=== PATIENT | female | born 1965 | race Caucasian/White ===

== ENCOUNTER 2021-02-11 18:19 | Inpatient (IN) ==
[2021-02-11] MEDS ORDERED: cefTRIAXone 1,000 MG in Water for inj. (sterile) 10 ML IVP ONE (18:36)
[2021-02-11] MEDS ORDERED: methylPREDNISolone 125 MG/2 ML VIAL IVP ONE (18:36)
[2021-02-11] MEDS ORDERED: Azithromycin 500 MG in 0.9 % Sodium Chloride 250 ML IVPB ONE (18:36)
[2021-02-11] MEDS ORDERED: Ipratropium/Albuterol Neb 3 ML IH ONE (18:36)
[2021-02-11] MEDS: 0.9 % Sodium Chloride 1,000 ML IVC SCH (18:56)
[2021-02-11 19:06] LABS: Basophils % 0.1 %; Hematocrit 37.5 % (35.3-44.9); Hemoglobin 12.7 g/dL (11.5-15.4); Immature Granulocytes % 0.7 % (0-4); Lymphocytes # 0.5 K/mcL (0.6-4.6); Lymphocytes % 4.4 %; Mean Corpuscular HGB Conc 33.9 g/dL (31.6-35.5); Mean Corpuscular Hemoglobin 28.9 pg (28.0-33.3); Mean Corpuscular Volume 85.2 fL (83.0-100.0); Mean Platelet Volume 10.4 fL (9.4-12.4); Monocytes # 0.5 K/mcL (0.0-1.3); Monocytes % 4.7 %; Platelet Count 210 K/mcL (140-400); Red Cell Distribution Width 13.9 % (11.5-14.5); Segmented Neutrophils % 90.1 %; White Blood Count 10.9 K/mcL (4.3-11.1)
[2021-02-11 19:21] LABS: Neutrophils # 9.8 K/mcL (1.6-8.9)
[2021-02-11 19:28] LABS: Alanine Aminotransferase 159 Units/L (7-52); Albumin 3.6 g/dL (3.5-5.7); Albumin/Globulin Ratio 0.9 (1.1-2.2); Aspartate Amino Transferase 139 Units/L (13-39); BUN/Creatinine Ratio 26 (6-26); Bilirubin,Direct 0.2 mg/dL (0.0-0.2); Bilirubin,Indirect 0.4 mg/dL (0.0-1.0); Bilirubin,Total 0.6 mg/dL (0.3-1.0); Blood Urea Nitrogen 19 mg/dL (6-20); Calcium 8.8 mg/dL (8.6-10.3); Carbon Dioxide 20 mEq/L (23-29); Chloride 100 mEq/L (98-107); Globulin 3.9 g/dL (2.4-3.5); Glucose 113 mg/dL (70-105); Magnesium 1.7 mg/dL (1.6-2.6); Osmolality,Calculated 285 (280-300); Phosphorous 1.5 mg/dL (2.7-4.5); Potassium 3.4 mEq/L (3.5-5.1); Sodium 136 mEq/L (136-145); Total Protein 7.5 g/dL (6.4-8.9); Troponin I < 0.03 ng/mL (< 0.04); eGFR For African Americans > 60 (> 60); eGFR For Non-African Americans > 60 (> 60)
[2021-02-11 19:38] LABS: Reactive Lymphocytes Present (Not Present)
[2021-02-11 19:56] LABS: Adenovirus Not Detected (Not Detect); Coronavirus 229E Not Detected (Not Detect); Coronavirus HKU1 Not Detected (Not Detect); Coronavirus NL63 Not Detected (Not Detect); Coronavirus OC43 Not Detected (Not Detect)
[2021-02-11 19:58] LABS: Bordetella Pertussis Not Detected (Not Detect); Chlamydophila pneumoniae Not Detected (Not Detect); Human Metapneumovirus Not Detected (Not Detect); Human Rhinovirus/Enterovirus Not Detected (Not Detect); Influenza A Subtype 2009 H1 Not Detected (Not Detect); Influenza B Not Detected (Not Detect); Mycoplasma pneumoniae Not Detected (Not Detect); Parainfluenza Virus 1 Not Detected (Not Detect); Parainfluenza Virus 2 Not Detected (Not Detect); Parainfluenza Virus 3 Not Detected (Not Detect); Parainfluenza Virus 4 Not Detected (Not Detect); Respiratory Syncytial Virus Not Detected (Not Detect); SARS-CoV-2 DETECTED (Not Detect)
[2021-02-11 20:43] LABS: Alkaline Phosphatase 128 Units/L (34-104)
[2021-02-11 20:47] LABS: Bilirubin,Urine Negative (Negative); Blood,Urine Trace (Negative); Clarity,Urine Clear (Clear); Color,Urine Yellow (Yellow); Glucose,Urine (UA) Normal (Normal); Ketones,Urine 10 mg/dL (Negative); Leukocyte Esterase,Urine Negative (Negative); Mucus,Urine Few per lpf (None-Few); Nitrite,Urine Negative (Negative); PH,Urine 6.5 pH Units (5.0-8.0); Protein,Urine >=300 mg/dL (Neg-Trace); RBC,Urine 0-3 per hpf (0-3); Specific Gravity,Urine 1.027 (1.010-1.025); Squamous Epithelial Cell,Urine Few per hpf (None-Few); Urobilinogen,Urine Normal (Normal); WBC,Urine 0-3 per hpf (0-3)
[2021-02-11 21:18] LABS: Hepatitis B Surface Antigen Nonreactive (Nonreactive)
[2021-02-11 21:46] LABS: Hepatitis B Core IgM Nonreactive (Nonreactive)
[2021-02-11 21:47] LABS: Hepatitis C Virus Antibody Nonreactive (Nonreactive)
[2021-02-11 21:48] LABS: Hepatitis A Antibody IgM Nonreactive (Nonreactive)
[2021-02-11] MEDS ORDERED: Ondansetron 4 MG/2 ML VIAL IVP PRN (21:48)
[2021-02-11] MEDS ORDERED: Naloxone 0.4 MG/ML INJ IVP PRN (21:48)
[2021-02-11] MEDS ORDERED: Ipratropium/Albuterol Neb 3 ML IH PRN (21:51)
[2021-02-11 22:44] LABS: Estimated Average Glucose 120 mg/dl; Hemoglobin A1C 5.8 %
[2021-02-12] MEDS: 0.9 % Sodium Chloride 1,000 ML IVC SCH (03:34)
[2021-02-12 04:36] LABS: Basophils % 0.2 %; Hematocrit 34.5 % (35.3-44.9); Hemoglobin 11.4 g/dL (11.5-15.4); Immature Granulocytes % 0.8 % (0-4); Lymphocytes # 0.4 K/mcL (0.6-4.6); Lymphocytes % 6.4 %; Mean Corpuscular Hemoglobin 28.4 pg (28.0-33.3); Monocytes # 0.2 K/mcL (0.0-1.3); Monocytes % 3.9 %; Neutrophils # 5.5 K/mcL (1.6-8.9); Platelet Count 187 K/mcL (140-400); Red Blood Count 4.01 M/mcL (3.82-4.97); Segmented Neutrophils % 88.7 %; White Blood Count 6.2 K/mcL (4.3-11.1)
[2021-02-12 04:42] LABS: INR 1.2; Prothrombin Time 14.2 Seconds (9.4-12.1)
[2021-02-12 04:54] LABS: BUN/Creatinine Ratio 23 (6-26); Blood Urea Nitrogen 12 mg/dL (6-20); C-Reactive Protein 227 mg/L (Less than 10); Calcium 8.5 mg/dL (8.6-10.3); Carbon Dioxide 22 mEq/L (23-29); Chloride 106 mEq/L (98-107); Chol/HDL Ratio 4.5 (0-4.9); Cholesterol 161 mg/dL (< 200); Glucose 145 mg/dL (70-105); HDL Cholesterol 36 mg/dL (40-59); LDL Cholesterol,Calculated 98 mg/dL (< 100); Lactate Dehydrogenase 333 Units/L (140-271); Osmolality,Calculated 292 (280-300); Potassium 4.2 mEq/L (3.5-5.1); Sodium 140 mEq/L (136-145); Triglycerides 137 mg/dL (< 150); eGFR For African Americans > 60 (> 60); eGFR For Non-African Americans > 60 (> 60)
[2021-02-12 05:32] LABS: Platelet Estimate Normal (Normal)
[2021-02-12] MEDS ORDERED: *HR* Enoxaparin 30 MG/0.3 ML SYRINGE SQ SCH (09:00)
[2021-02-12] MEDS ORDERED: Potassium Phosphate 44 MEQ in 0.9 % Sodium Chloride 250 ML IVPB ONE (11:48)
[2021-02-12 12:44] LABS: Protein/Creatinine Ratio,Urine 3.04 mg/mg (0.00-0.20)
[2021-02-12 14:10] LABS: Alanine Aminotransferase 121 Units/L (7-52); Albumin 3.4 g/dL (3.5-5.7); Albumin/Globulin Ratio 1.1 (1.1-2.2); Alkaline Phosphatase 107 Units/L (34-104); Aspartate Amino Transferase 85 Units/L (13-39); Bilirubin,Direct 0.1 mg/dL (0.0-0.2); Bilirubin,Indirect 0.3 mg/dL (0.0-1.0); Bilirubin,Total 0.4 mg/dL (0.3-1.0); Total Protein 6.4 g/dL (6.4-8.9)
[2021-02-12] MEDS ORDERED: Azithromycin 500 MG in 0.9 % Sodium Chloride 250 ML IVPB SCH (19:00)
[2021-02-12] MEDS ORDERED: cefTRIAXone 1,000 MG in 0.9 % Sodium Chloride Mini Bag 100 ML IVPB SCH (19:00)
[2021-02-12] MEDS ORDERED: traZODone 50 MG TABLET PO PRN (23:27)
[2021-02-13] MEDS: hydrOXYzine pamoate 25 MG CAPSULE PO SCH ×3 (00:18→23:01)
[2021-02-13] MEDS: QUEtiapine Fumarate 25 MG TABLET PO SCH ×2 (00:18→23:01)
[2021-02-13] MEDS: Baclofen 10 MG TABLET PO SCH ×3 (00:18→23:00)
[2021-02-13 05:30] LABS: Basophils % 0.4 %; Eosinophils % 0.2 %; Hematocrit 34.8 % (35.3-44.9); Hemoglobin 11.6 g/dL (11.5-15.4); Immature Granulocytes % 1.7 % (0-4); Lymphocytes # 1.1 K/mcL (0.6-4.6); Lymphocytes % 13.2 %; Mean Corpuscular HGB Conc 33.3 g/dL (31.6-35.5); Mean Corpuscular Hemoglobin 28.7 pg (28.0-33.3); Mean Corpuscular Volume 86.1 fL (83.0-100.0); Mean Platelet Volume 10.9 fL (9.4-12.4); Monocytes # 0.6 K/mcL (0.0-1.3); Monocytes % 6.6 %; Neutrophils # 6.6 K/mcL (1.6-8.9); Platelet Count 232 K/mcL (140-400); Red Blood Count 4.04 M/mcL (3.82-4.97); Segmented Neutrophils % 77.9 %; White Blood Count 8.5 K/mcL (4.3-11.1)
[2021-02-13 05:53] LABS: Alanine Aminotransferase 260 Units/L (7-52); Albumin 3.2 g/dL (3.5-5.7); Albumin/Globulin Ratio 0.9 (1.1-2.2); Alkaline Phosphatase 100 Units/L (34-104); Aspartate Amino Transferase 202 Units/L (13-39); BUN/Creatinine Ratio 25 (6-26); Bilirubin,Total 0.4 mg/dL (0.3-1.0); Blood Urea Nitrogen 13 mg/dL (6-20); Calcium 8.6 mg/dL (8.6-10.3); Carbon Dioxide 22 mEq/L (23-29); Chloride 106 mEq/L (98-107); Globulin 3.4 g/dL (2.4-3.5); Glucose 91 mg/dL (70-105); Osmolality,Calculated 286 (280-300); Potassium 3.3 mEq/L (3.5-5.1); Sodium 138 mEq/L (136-145); Total Protein 6.6 g/dL (6.4-8.9); eGFR For African Americans > 60 (> 60); eGFR For Non-African Americans > 60 (> 60)
[2021-02-13 06:10] LABS: Large Platelets Present (Not Present); Platelet Estimate Normal (Normal)
[2021-02-13] MEDS ORDERED: Isovue-370 500 ML BOTTLE IVP ONE (07:46)
[2021-02-13] MEDS: Tiotropium 10 INH DOSE IH SCH (08:16)
[2021-02-13] MEDS: Gabapentin 400 MG CAPSULE PO SCH ×3 (09:12→23:00)
[2021-02-13] MEDS: *HR* OxyCODONE/APAP 10/325 TABLET PO SCH ×2 (09:12→23:02)
[2021-02-13] MEDS: lisinopriL 5 MG TABLET PO SCH (09:13)
[2021-02-13] MEDS: Fluticasone Propionate Nasal 50 MCG/SPRAY BOTTLE NS SCH ×2 (09:14→23:06)
[2021-02-13] MEDS: *HR* Enoxaparin 40 MG/0.4 ML SYRINGE SQ SCH (09:48)
[2021-02-13] MEDS: Zinc Sulfate 220 MG CAPSULE PO SCH (12:51)
[2021-02-13] MEDS ORDERED: Mirtazapine 15 MG TABLET PO SCH (21:00)
[2021-02-14 06:58] VITALS: TEMP 97.8
[2021-02-14 07:50] LABS: Hematocrit 35.5 % (35.3-44.9); Hemoglobin 11.2 g/dL (11.5-15.4); Mean Corpuscular HGB Conc 31.5 g/dL (31.6-35.5); Mean Corpuscular Hemoglobin 27.8 pg (28.0-33.3); Mean Corpuscular Volume 88.1 fL (83.0-100.0); Mean Platelet Volume 10.7 fL (9.4-12.4); Monocytes # 0.6 K/mcL (0.0-1.3); Platelet Count 244 K/mcL (140-400); Red Blood Count 4.03 M/mcL (3.82-4.97); Red Cell Distribution Width 13.9 % (11.5-14.5)
[2021-02-14] MEDS: Tiotropium 10 INH DOSE IH SCH (07:56)
[2021-02-14 08:26] LABS: Alanine Aminotransferase 205 Units/L (7-52); Albumin 3.2 g/dL (3.5-5.7); Alkaline Phosphatase 89 Units/L (34-104); Aspartate Amino Transferase 81 Units/L (13-39); BUN/Creatinine Ratio 27 (6-26); Bilirubin,Total 0.4 mg/dL (0.3-1.0); Blood Urea Nitrogen 13 mg/dL (6-20); Calcium 8.9 mg/dL (8.6-10.3); Carbon Dioxide 23 mEq/L (23-29); Chloride 106 mEq/L (98-107); Globulin 3.1 g/dL (2.4-3.5); Glucose 110 mg/dL (70-105); Osmolality,Calculated 287 (280-300); Potassium 4.2 mEq/L (3.5-5.1); Sodium 138 mEq/L (136-145); Total Protein 6.3 g/dL (6.4-8.9); eGFR For African Americans > 60 (> 60); eGFR For Non-African Americans > 60 (> 60)
[2021-02-14] MEDS: Zinc Sulfate 220 MG CAPSULE PO SCH (09:25)
[2021-02-14] MEDS: hydrOXYzine pamoate 25 MG CAPSULE PO SCH (09:25)
[2021-02-14] MEDS: Baclofen 10 MG TABLET PO SCH (09:25)
[2021-02-14] MEDS: *HR* Enoxaparin 40 MG/0.4 ML SYRINGE SQ SCH (09:26)
[2021-02-14] MEDS: Fluticasone Propionate Nasal 50 MCG/SPRAY BOTTLE NS SCH (09:26)
[2021-02-14] MEDS: lisinopriL 5 MG TABLET PO SCH (09:27)
[2021-02-14 09:43] LABS: Lymphocytes # 0.8 K/mcL (0.6-4.6); Neutrophils # 5.6 K/mcL (1.6-8.9); Platelet Estimate Normal (Normal)
[2021-02-14 11:03] VITALS: BP 107/50; PULSE 74
[2021-02-14] MEDS: Gabapentin 400 MG CAPSULE PO SCH (11:28)
[2021-02-14] MEDS: *HR* OxyCODONE/APAP 10/325 TABLET PO SCH (11:28)
[2021-02-14 11:50] VITALS: O2SAT 93
== END 2021-02-14 14:37 | disposition home or self-care (01) | DRG 720 ==
LOC: CDU 18:19 → EMEROOARM 18:19 → SUATTDRO 21:59 → CDU 23:31
PROVIDERS: ADMIT Internal Medicine; ATTEND Internal Medicine